=== PATIENT | male | born 1985 | race Caucasian/White ===

== ENCOUNTER 2018-10-18 03:44 | Emergency (ER) | payer OTHER, SELFPAY ==
[2018-10-18 03:54] VITALS: BP 146/90; PULSE 73; RESP 16; TEMP 36.4; O2SAT 98; BMI 26.6
--- NOTE | 2018-10-18 03:58 | ED.ANXIETY ---
HPI - Anxiety General Chief Complaint: Anxiety Stated Complaint: Cant sleep Time Seen by Provider: 10/18/18 03:58 Source: patient Mode of arrival: ambulatory Limitations: no limitations History of Present Illness HPI narrative: Patient is a 22-year-old male who presents with inability to sleep. He states he has not been able to sleep for about a month or more it has progressively gotten worse. The last 2 nights he has only had 3 or 4 hours of sleep. He says he lays down and just can't go to sleep. He feels anxious. He was lying in bed he had some epigastric discomfort he thought it might be his heart. He currently has none. No palpitations. Earlier today he felt a little dizzy and lightheaded and had some tingling in hands that has gone. He denies daily alcohol or marijuana use. In fact he says he has both of those very rarely. He denies any caffeine use as well. He is followed by primary care physician and telling him. History of similar episodes: No Provoking factors: none known Review of Systems Review of Systems ROS Unobtainable: All systems reviewed & are unremarkable except as noted in HPI and below Eyes Eyes: Denies change in vision, Denies eye discharge, Denies irritation and Denies loss of vision ENT Ears, Nose, Mouth, and Throat: Denies change in voice, Denies neck pain and Denies sore throat Cardiovascular Cardiovascular: Reports chest pain, Denies dyspnea and Denies dyspnea on exertion Respiratory Respiratory: Denies cough, Denies dyspnea, Denies dyspnea on exertion and Denies wheezing Gastrointestinal Gastrointestinal: Denies abdominal pain, Denies change in bowel habits, Denies diarrhea, Denies nausea and Denies vomiting Genitourinary Genitourinary: Denies hematuria, Denies flank pain, Denies urinary incontinence and Denies urinary urgency Musculoskeletal Musculoskeletal: Denies neck pain Integumentary/Breasts Skin/Breast: Denies pruritus, Denies erythema, Denies rash and Denies wounds Neurologic Neurologic: Denies loss of vision Psychiatric Psychiatric: Reports anxiety Allergic/Immunologic Allergic/Immunologic: Denies wheezing [facility] Medical History Patient denies significant medical history (Acute) Social History Smoking Status: Never smoker Social History Smoking Status: Never smoker Exam Initial Vital Signs Initial Vital Signs: Vital Signs Temperature 97.6 F 10/18/18 03:54 Pulse Rate 73 10/18/18 03:54 Respiratory Rate 16 10/18/18 03:54 Blood Pressure 146/90 H 10/18/18 03:54 Pulse Oximetry 98 10/18/18 03:54 GENERAL: Well-appearing, well-nourished and in no acute distress. HEENT: Head atraumatic,EOMI, pupils reactive, face symmetric, moist mucous membranes CARDIOVASCULAR: Regular rate and rhythm without murmurs, rubs or gallops. RESPIRATORY: Breath sounds equal bilaterally, no wheezes rales or rhonchi. ABDOMEN: Soft, minimal epigastric pain no guarding no rebound Normoactive bowel sounds all 4 quadrants. EXTREMITIES: Normal range of motion, no clubbing or edema. Neurovascularly intact NEUROLOGICAL: Alert and oriented x4.Normal gait and speech. SKIN: Warm, dry, no laceration, no petechiae, no rashes or lesions. Course Orders Ordered: ED Orders 10/18/18 03:58 EKG-12 Lead Stat Discontinued Medications Lorazepam (Ativan) 0.5 mg PO NOW ONE Stop: 10/18/18 03:59 Last Admin: 10/18/18 04:02 Dose: 0.5 mg Documented by: JOSUÉ Vital Signs Vital signs: Vital Signs - 8 hr 10/18/18 03:54 Temperature 97.6 F Pulse Rate 73 Respiratory Rate 16 Blood Pressure 146/90 H Pulse Oximetry 98 MDM - Anxiety ECG Data Attestation: I personally reviewed and interpreted this ECG as follows: Prior ECG tracings: not available for review Interpretation: Normal sinus rhythm rate 62 p.r. interval 166 QRS [address] changes no T-wave inversions no ischemia and no arrhythmia MDM Narrative Medical decision making narrative: Patient overall here for anxiety and insomnia. We talked about long-term anxiety medications for which he will need to see his PCP for. Symptoms of dizziness and overall not feeling well likely from sleep deprivation. Will give him 1 Ativan in the ED so he can sleep tonight. Discharge Plan Departure Patient Disposition: Home Clinical Impression: Acute anxiety Discharge Date/Time: 10/18/18 04:16 Instructions: Anxiety Disorders Activity Restrictions/Additional Instructions: *You have been diagnosed with anxiety *What to do: Your anxiety is likely causing insomnia. Recommend long lasting anxiety medication and/or therapeutic counseling. Your primary care physician will need to right you for anxiety medications. You were given 1 dose of Ativan this evening. This should help you sleep tonight. Benadryl 25-50 mg before bed if needed for sleeping aid *Continue to take medications as directed *Follow up with your primary care provider in 2-3 days *Return to ER if you should have increasing chest pain shortness of breath numbness tingling weakness or any new, worsening or concerning symptoms
[2018-10-18] MEDS: LORazepam 0.5 MG TABLET PO (04:02)
== END 2018-10-18 04:16 | disposition home or self-care (01) ==
PROVIDERS: Emergency Provider Emergency Medicine
DX: F41.9 Anxiety disorder, unspecified (principal)
CPT/HCPCS: 93005; 99282; 99283

== ENCOUNTER 2018-10-19 11:02 | Emergency (ER) | payer OTHER, SELFPAY ==
[2018-10-19 11:19] VITALS: BP 135/77; PULSE 71; RESP 15; TEMP 36.8; O2SAT 99; BMI 25.9
--- NOTE | 2018-10-19 11:46 | ED.HA ---
HPI - Headache <FELTON Malone - Last Filed: 10/19/18 17:21> General Chief Complaint: Headache Stated Complaint: headaches/loss of depth of perception x2 days Time Seen by Provider: 10/19/18 11:26 Source: patient and family Mode of arrival: ambulatory Limitations: no limitations History of Present Illness HPI Narrative: The patient is a 32-year-old male nonsmoker who was seen yesterday for history of depression and insomnia who presents with visual deficit, yellow vision in both eyes, and trickle from the top with his head to his right ear that happened on . He states he is not sure if he brought this up when he was here yesterday. He states he has been sleeping poorly, was given a single dose of Ativan at yesterday in the emergency department to help him sleep, and has been fairly sleeping since. He states he feels off when he walks around. He states that he thinks the trickle caused a visual deficit as well as his off balance, and this occurred on . He denies any shortness of breath, chest pain, fevers, nausea vomiting or diarrhea. He denies any falls or trauma. He denies any thoughts of hurting himself or anybody else Related Data Previous Rx's Medication Instructions Recorded hydroxyzine pamoate 50 mg PO TID PRN #20 cap 10/19/18 lorazepam 1 mg PO QD-BID PRN #5 tab 10/19/18 Allergies Allergy/AdvReac Type Severity Reaction Status Date / Time No Known Drug Allergies Allergy Verified 10/19/18 11:25 Review of Systems <FELTON Malone - Last Filed: 10/19/18 17:21> Review of Systems Narrative: GENERAL: Denies chills, fatigue, malaise, fever, sweats. HEENT: Denies sinus pain, ear pain, sore throat, difficulty swallowing, dizziness. RESPIRATORY: Denies dyspnea, cough, wheezing, hemoptysis, sputum. CARDIOVASCULAR: Denies chest pain, palpitations, orthopnea, edema, GASTROINTESTINAL: Denies nausea, vomiting, abdominal pain, diarrhea, constipation, melena. : Denies dysuria, frequency, incontinence, hematuria, urinary retention. MUSCULOSKELETAL: denies weakness, joint pain, or bony pain SKIN: Denies rash, skin lesions, or other NEUROLOGIC: See HPI PSYCHIATRIC: See HPI 12 point review of systems is negative except for those stated above PFSH <FELTON Malone - Last Filed: 10/19/18 17:21> Medical History Patient denies significant medical history (Acute) Social History Smoking Status: Never smoker Social History Smoking Status: Never smoker Exam <FELTON Malone - Last Filed: 10/19/18 17:21> Narrative Exam Narrative: GENERAL: This is a well-nourished, well-developed patient, no acute distress HEAD: Atraumatic. Normocephalic. No temporal or scalp tenderness. EYES: Pupils equal round and reactive. Extraocular motions intact. No scleral icterus. No injection or drainage. ENT: Nose without bleeding, purulent drainage or septal hematoma. Throat without erythema, tonsillar hypertrophy or exudate. Uvula midline. Airway patent. NECK: Trachea midline. No JVD or lymphadenopathy. Supple, nontender, no meningeal signs. CARDIOVASCULAR: Regular rate and rhythm without murmurs, gallops, or rubs. RESPIRATORY: Clear to auscultation. Breath sounds equal bilaterally. No wheezes, rales, or rhonchi. No cough. No increased respiratory effort. No accessory muscle use GASTROINTESTINAL: Abdomen soft, non-tender, nondistended. No hepato-splenomegaly, or palpable masses. No guarding. EXTREMITIES: No clubbing, cyanosis, or edema. No joint tenderness, effusion, or edema noted. BACK: Nontender without deformity or crepitance. No flank tenderness. NEURO: AOx3. Strength is equal upper and lower extremities bilaterally. Finger-nose test intact. Kendall heel test intact. Serial sevens intact. Steady gait. SKIN: No rash or erythema on visual skin. No noted jaundice Initial Vital Signs Initial Vital Signs: Vital Signs Temperature 98.3 F 10/19/18 11:19 Pulse Rate 71 10/19/18 11:19 Respiratory Rate 15 10/19/18 11:19 Blood Pressure 135/77 10/19/18 11:19 Pulse Oximetry 99 10/19/18 11:19 <Arik Beltran DO - Last Filed: 10/19/18 17:45> Initial Vital Signs Initial Vital Signs: Vital Signs Temperature 98.3 F 10/19/18 11:19 Pulse Rate 71 10/19/18 11:19 Respiratory Rate 15 10/19/18 11:19 Blood Pressure 135/77 10/19/18 11:19 Pulse Oximetry 99 10/19/18 11:19 Scores <FELTON Malone - Last Filed: 10/19/18 17:21> GCS [place] coma scale eye opening: Spontaneous [place] coma scale verbal response: Orientated [address] coma scale motor response: Obey commands [address] coma scale total score: 15 NIH Stroke Scale Level of Conciousness: Alert, keenly responsive Ask month/age: Answers both questions correctly. Open/close eyes, close hand: Performs both tasks correctly Best gaze horizontal: Normal Visual fleming: No visual loss Facial palsy: Normal symetrical movement Left arm drift: No drift for full 10 sec Right arm drift: No drift for full 10 sec Left leg drift: No drift for full 10 sec Right leg drift: No drift for full 10 sec Limb ataxia: Absent Sensory on face/arms/legs: Normal, no sensory loss Best language: No aphasia, normal Dysarthria: Normal Extinction or inattention: No abnormality Total NIH Stroke scale score: 0 Course <FELTON Malone - Last Filed: 10/19/18 17:21> Orders Ordered: ED Orders 10/19/18 12:00 Complete Blood Count AUTO DIFF Stat Comprehensive Metabolic Panel Stat Magnesium Stat 10/19/18 13:49 Urine Drug Screen, Rapid Stat Discontinued Medications Acetaminophen (Tylenol) 975 mg PO NOW ONE Stop: 10/19/18 13:24 Last Admin: 10/19/18 13:38 Dose: 975 mg Documented by: JACOB Hydroxyzine Pamoate (Vistaril) 50 mg PO NOW ONE Stop: 10/19/18 13:24 Last Admin: 10/19/18 13:45 Dose: 50 mg Documented by: JACOB Sodium Chloride (Normal Saline 0.9%) 1,000 mls @ 1,000 mls/hr IV BOLUS ONE Stop: 10/19/18 12:41 Last Infusion: 10/19/18 13:20 Dose: 0 mls/hr Documented by: Admin: 10/19/18 12:13 Dose: 1,000 mls/hr Documented by: JACOB Sodium Chloride (Normal Saline 0.9%) 1,000 mls @ 1,000 mls/hr IV BOLUS ONE Stop: 10/19/18 14:22 Last Infusion: 10/19/18 15:09 Dose: 0 mls/hr Documented by: Admin: 10/19/18 13:39 Dose: 1,000 mls/hr Documented by: JACOB Ketorolac Tromethamine (Toradol) 30 mg IV NOW ONE Stop: 10/19/18 11:43 Last Admin: 10/19/18 12:13 Dose: 30 mg Documented by: JACOB Vital Signs Vital signs: Vital Signs - 8 hr 10/19/18 11:19 10/19/18 13:14 10/19/18 15:23 Temperature 98.3 F Pulse Rate 71 81 61 Respiratory Rate 15 20 15 Blood Pressure 135/77 Blood Pressure [Right Arm] 135/77 121/66 Pulse Oximetry 99 99 98 <Arik Beltran DO - Last Filed: 10/19/18 17:45> Orders Ordered: ED Orders 10/19/18 12:00 Complete Blood Count AUTO DIFF Stat Comprehensive Metabolic Panel Stat Magnesium Stat 10/19/18 13:49 Urine Drug Screen, Rapid Stat Discontinued Medications Acetaminophen (Tylenol) 975 mg PO NOW ONE Stop: 10/19/18 13:24 Last Admin: 10/19/18 13:38 Dose: 975 mg Documented by: JACBO Hydroxyzine Pamoate (Vistaril) 50 mg PO NOW ONE Stop: 10/19/18 13:24 Last Admin: 10/19/18 13:45 Dose: 50 mg Documented by: JACOB Sodium Chloride (Normal Saline 0.9%) 1,000 mls @ 1,000 mls/hr IV BOLUS ONE Stop: 10/19/18 12:41 Last Infusion: 10/19/18 13:20 Dose: 0 mls/hr Documented by: Admin: 10/19/18 12:13 Dose: 1,000 mls/hr Documented by: JACOB Sodium Chloride (Normal Saline 0.9%) 1,000 mls @ 1,000 mls/hr IV BOLUS ONE Stop: 10/19/18 14:22 Last Infusion: 10/19/18 15:09 Dose: 0 mls/hr Documented by: Admin: 10/19/18 13:39 Dose: 1,000 mls/hr Documented by: JACOB Ketorolac Tromethamine (Toradol) 30 mg IV NOW ONE Stop: 10/19/18 11:43 Last Admin: 10/19/18 12:13 Dose: 30 mg Documented by: JACOB Vital Signs Vital signs: Vital Signs - 8 hr 10/19/18 11:19 10/19/18 13:14 10/19/18 15:23 Temperature 98.3 F Pulse Rate 71 81 61 Respiratory Rate 15 20 15 Blood Pressure 135/77 Blood Pressure [Right Arm] 135/77 121/66 Pulse Oximetry 99 99 98 MDM - Headache <WES Malone-BC - Last Filed: 10/19/18 17:21> Lab Data Result diagrams: 10/19/18 12:00 10/19/18 12:00 Labs: Lab Results 10/19/18 10/19/18 10/19/18 Range/Units 12:00 12:00 13:49 WBC 6.4 (4.5-11.0) X10^3/uL RBC 5.38 (4.5-5.9) X10^6/uL Hgb 16.3 (13.5-17.5) g/dL Hct 47.0 (41-53) % MCV 87.4 (80-100) fL MCH 30.2 (26-34) PG MCHC 34.6 (30-36) % RDW 13.8 (11.6-14.8) % Plt Count 288 (150-400) X10^3/uL Neut % (Auto) 70.2 (50-75) % Lymph % (Auto) 21.3 L (25-40) % [place] % (Auto) 7.7 (3-14) % Eos % (Auto) 0.3 L (2-4) % Baso % (Auto) 0.5 (0-2) % Neut # (Auto) 4500 (3855-4417) /uL Lymph # (Auto) 1400 (5768-5087) /uL [place] # (Auto) 500 (0-900) /uL Eos # (Auto) 0 (0-450) /uL Baso # (Auto) 0 (0-100) /uL Sodium 141 (137-145) mmol/L Potassium 3.8 (3.4-5.1) mmol/L Chloride 100 (98-107) mmol/L Carbon Dioxide 30 (22-32) mmol/L BUN 17 (9-20) mg/dL Creatinine 1.00 (0.66-1.25) mg/dL Estimated GFR > 60.0 (>60) mL/min BUN/Creatinine Ratio 17.0 (6-22) Glucose 79 (70-100) mg/dL Calcium 9.8 (8.4-10.2) mg/dL Magnesium 2.1 (1.6-2.3) mg/dL Total Bilirubin 0.9 (0.2-1.3) mg/dL AST 23 (17-59) IU/L ALT 17 L (21-72) IU/L Alkaline Phosphatase 51 (38-126) U/L Total Protein 7.9 (6.3-8.2) g/dL Albumin 4.7 (3.5-5.0) g/dL Globulin 3.2 (1.7-4.1) g/dL Albumin/Globulin Ratio 1.5 (1.0-2.8) Urine Opiates Screen Negative (Negative) Ur Oxycodone Screen Negative (Negative) Urine Methadone Screen Negative (Negative) Ur Barbiturates Screen Negative (Negative) U Tricyclic Antidepress Negative (Negative) Ur Phencyclidine Scrn Negative (Negative) Ur Amphetamines Screen Negative (Negative) U Methamphetamines Scrn Negative (Negative) Ur MDMA Scrn (Ecstasy) Negative (Negative) U Benzodiazepines Scrn Negative (Negative) Urine Cocaine Screen Negative (Negative) U Marijuana (THC) Screen Negative (Negative) Urine Dip Bedside Urine Glucose Negative Bedside Urine Bilirubin - Negative Bedside Urine Ketone - Negative Urine Specific [place] 1.015 Bedside Urine Occult Blood - Negative Bedside Urine pH 8.0 Bedside Urine Protein - Negative Bedside Urine Urobilinogen - Negative Bedside Urine Nitrite - Negative Bedside Urine Leukocytes - Negative Esterase MDM Narrative Medical decision making narrative: The patient a 32-year-old male who does the chief complaint of yellow vision, a trickle down his head on and still not sleeping after being evaluated here in this emergency department on Sunday. He requested a CT scan of his head, though he is GCS 15, alert oriented has a NIH of 0 and has no acute signs of a head bleed. He has no altered mental status, denies any acute headache at this point, is alert oriented, not vomiting etc we did do lab work which came back grossly normal. He states that his depth perception is off, though it is normal on exam. The patient states he usually is sleeping 2-3 hours per night at this point time. He states he does not remember the last time he had more than 6 hours of sleep. His neurological exam is normal. I did discuss at length that he needs to follow up with primary care provider, discussed several options for treatment of anxiety and insomnia. The patient denies any thoughts of hurting himself or anybody else. I did discuss monitoring for confusion, repeat vomiting and other signs of head bleed. Discussed coming back to the ER for any acute concerns. I did give him a small prescription of Ativan, with strict instructions to not combine it with any sedating agents such as alcohol. Patient have no questions or concerns. They will come back to the emergency department if needed. <Arik Beltran, DO - Last Filed: 10/19/18 17:45> Lab Data Labs: Lab Results 10/19/18 10/19/18 10/19/18 Range/Units 12:00 12:00 13:49 WBC 6.4 (4.5-11.0) X10^3/uL RBC 5.38 (4.5-5.9) X10^6/uL Hgb 16.3 (13.5-17.5) g/dL Hct 47.0 (41-53) % MCV 87.4 (80-100) fL MCH 30.2 (26-34) PG MCHC 34.6 (30-36) % RDW 13.8 (11.6-14.8) % Plt Count 288 (150-400) X10^3/uL Neut % (Auto) 70.2 (50-75) % Lymph % (Auto) 21.3 L (25-40) % [place] % (Auto) 7.7 (3-14) % Eos % (Auto) 0.3 L (2-4) % Baso % (Auto) 0.5 (0-2) % Neut # (Auto) 4500 (6251-5226) /uL Lymph # (Auto) 1400 (1648-8601) /uL [place] # (Auto) 500 (0-900) /uL Eos # (Auto) 0 (0-450) /uL Baso # (Auto) 0 (0-100) /uL Sodium 141 (137-145) mmol/L Potassium 3.8 (3.4-5.1) mmol/L Chloride 100 (98-107) mmol/L Carbon Dioxide 30 (22-32) mmol/L BUN 17 (9-20) mg/dL Creatinine 1.00 (0.66-1.25) mg/dL Estimated GFR > 60.0 (>60) mL/min BUN/Creatinine Ratio 17.0 (6-22) Glucose 79 (70-100) mg/dL Calcium 9.8 (8.4-10.2) mg/dL Magnesium 2.1 (1.6-2.3) mg/dL Total Bilirubin 0.9 (0.2-1.3) mg/dL AST 23 (17-59) IU/L ALT 17 L (21-72) IU/L Alkaline Phosphatase 51 (38-126) U/L Total Protein 7.9 (6.3-8.2) g/dL Albumin 4.7 (3.5-5.0) g/dL Globulin 3.2 (1.7-4.1) g/dL Albumin/Globulin Ratio 1.5 (1.0-2.8) Urine Opiates Screen Negative (Negative) Ur Oxycodone Screen Negative (Negative) Urine Methadone Screen Negative (Negative) Ur Barbiturates Screen Negative (Negative) U Tricyclic Antidepress Negative (Negative) Ur Phencyclidine Scrn Negative (Negative) Ur Amphetamines Screen Negative (Negative) U Methamphetamines Scrn Negative (Negative) Ur MDMA Scrn (Ecstasy) Negative (Negative) U Benzodiazepines Scrn Negative (Negative) Urine Cocaine Screen Negative (Negative) U Marijuana (THC) Screen Negative (Negative) Urine Dip Bedside Urine Glucose Negative Bedside Urine Bilirubin - Negative Bedside Urine Ketone - Negative Urine Specific [place] 1.015 Bedside Urine Occult Blood - Negative Bedside Urine pH 8.0 Bedside Urine Protein - Negative Bedside Urine Urobilinogen - Negative Bedside Urine Nitrite - Negative Bedside Urine Leukocytes - Negative Esterase Discharge Plan Departure Patient Disposition: Home Clinical Impression: Acute anxiety Headache Qualifiers: Headache type: unspecified Headache chronicity pattern: unspecified pattern Intractability: not intractable Qualified Code(s): R51 - Headache Insomnia Qualifiers: Insomnia type: unspecified Qualified Code(s): G47.00 - Insomnia, unspecified Discharge Date/Time: 10/19/18 16:39 Instructions: DI for Anxiety -- Adult, Treating Insomnia: A Look at Some Treatment Options, No More Sleepless Nights: Dealing With Insomnia, DI for Headache, DI for Insomnia, Mindful Meditation May Reduce Symptoms and Complications of Insomnia, Music May Improve Sleep Quality in Adults with Insomnia Activity Restrictions/Additional Instructions: Today you have a normal neurological exam. Your symptoms are not consistent with a head bleed. Please monitor for any confusion, seizures, repeat vomiting etc. I have given you a prescription of Ativan, to help with anxiety. This can be sedating. It is a benzodiazepine. Do not combine with any alcohol. I have also given you a prescription of hydroxyzine, which also can be used for anxiety. The both of these medications can be sedating and help with sleep. As I discussed, please follow up with primary care provider as soon as possible. Please feel free to come back to or see department for any acute concerns such as concern of heart attack or stroke, or thoughts of hurting yourself or anybody else Prescriptions: New lorazepam 1 mg tablet 1 mg PO QD-BID PRN (Reason: anxiety) Qty: 5 RF: 0 hydroxyzine pamoate 50 mg capsule 50 mg PO TID PRN (Reason: anxiety) Qty: 20 RF: 0 <Arik Beltran DO - Last Filed: 10/19/18 17:45> Sign Out Provider Sign Out Attestation: I was available for consultation during this patient's emergency department encounter
[2018-10-19] MEDS: SODIUM CHLORIDE 0.9% 1,000 ML 1000 ML IV ×2 (12:13→13:39)
[2018-10-19] MEDS: KETOROLAC 60 MG/2 ML VIAL 30 MG IV (12:13)
[2018-10-19 12:48] LABS: Add Manual Diff / Slide Review NO; Basophils Absolute Auto 0 /uL (0-100); Basophils Percent Auto 0.5 % (0-2); Eosinophils Absolute Auto 0 /uL (0-450); Eosinophils Percent Auto 0.3 % (2-4); Hemoglobin 16.3 g/dL (13.5-17.5); Lymphocytes Absolute Auto 1400 /uL (1100-4500); Lymphocytes Percent Auto 21.3 % (25-40); Mean Corpuscular HGB Conc 34.6 % (30-36); Mean Corpuscular Hemoglobin 30.2 PG (26-34); Mean Corpuscular Volume 87.4 fL (80-100); Monocytes Absolute Auto 500 /uL (0-900); Monocytes Percent Auto 7.7 % (3-14); Neutrophils Absolute Auto 4500 /uL (1500-7000); Neutrophils Percent Auto 70.2 % (50-75); Platelet Count 288 X10^3/uL (150-400); Red Blood Cell Count 5.38 X10^6/uL (4.5-5.9); Red Cell Distribution Width 13.8 % (11.6-14.8); White Blood Cell Count 6.4 X10^3/uL (4.5-11.0)
[2018-10-19 12:55] LABS: Alanine Aminotransferase 17 IU/L (21-72); Albumin 4.7 g/dL (3.5-5.0); Albumin Globulin Ratio 1.5 (1.0-2.8); Alkaline Phosphatase 51 U/L (38-126); Aspartate Aminotransferase 23 IU/L (17-59); Bilirubin Total 0.9 mg/dL (0.2-1.3); Blood Urea Nitrogen 17 mg/dL (9-20); Calcium 9.8 mg/dL (8.4-10.2); Carbon Dioxide 30 mmol/L (22-32); Chloride 100 mmol/L (98-107); Estimated Glomerular Filt Rate > 60.0 mL/min (>60); Globulin 3.2 g/dL (1.7-4.1); Glucose 79 mg/dL (70-100); HEMOLYSIS < 15 (0-50); Magnesium 2.1 mg/dL (1.6-2.3); Potassium 3.8 mmol/L (3.4-5.1); Sodium 141 mmol/L (137-145); Total Protein 7.9 g/dL (6.3-8.2)
[2018-10-19 13:14] VITALS: BP 135/77; PULSE 81; RESP 20; O2SAT 99
[2018-10-19] MEDS: ACETAMINOPHEN 325 MG TABLET 975 MG PO (13:38)
[2018-10-19] MEDS: hydrOXYzine pamoate 25 MG CAPSULE 50 MG PO (13:45)
[2018-10-19 13:59] LABS: Urine Amphetamines Negative (Negative); Urine Barbiturates Negative (Negative); Urine Benzodiazepines Negative (Negative); Urine Cocaine Negative (Negative); Urine MDMA Negative (Negative); Urine Methadone Negative (Negative); Urine Methamphetamines Negative (Negative); Urine Morphine/Opi cutoff 2000 Negative (Negative); Urine Oxycodone Negative (Negative); Urine Phencyclidine Negative (Negative); Urine Tetrahydrocannabinol Negative (Negative); Urine Tricyclic Antidepressant Negative (Negative)
[2018-10-19 15:23] VITALS: BP 121/66; PULSE 61; RESP 15; O2SAT 98
== END 2018-10-19 16:39 | disposition home or self-care (01) ==
PROVIDERS: Emergency Provider Nurse Practitioner Family
DX: R51 Headache (principal); G47.00 Insomnia, unspecified; F41.9 Anxiety disorder, unspecified
CPT/HCPCS: 36591; 80053; 80305; 81003; 83735; 85025; 96361; 96374; 99283; 99284; J1885

== ENCOUNTER 2018-10-20 12:48 | Emergency (ER) | payer OTHER, SELFPAY ==
[2018-10-20 13:13] VITALS: BP 127/89; PULSE 78; RESP 18; TEMP 36.7; O2SAT 98; BMI 26.6
[2018-10-20 13:17] VITALS: BP 127/89; PULSE 78; RESP 18; TEMP 36.7; O2SAT 98; BMI 26.6
--- NOTE | 2018-10-20 14:28 | ED_ITS ---
HPI - Recheck/Abnormal Lab/Rx General Chief Complaint: Recheck/Abnormal Lab/Rx Stated Complaint: DEPTH PERCEPTION OFF/RETURNING VISIT Time Seen by Provider: 10/20/18 14:01 Source: patient Mode of arrival: ambulatory Limitations: no limitations History of Present Illness HPI narrative: Patient is a 32-year-old male. This is his 3rd visit in 3 days to the emergency department for very similar symptoms. Both prior visits his discharge diagnosis was acute anxiety. He returns today because he states he continues to have problems with his depth perception. He also states that the collars that he sees less bright than normal. Couple days ago he described a tingling sensation to the top of his head down to his right ear that lasted only seconds. Has not had anything since then. He also describes insomnia for the past several days/weeks last months. He states that he did take an Ativan last thing that he was given his last ER visit and it did allow him to sleep for approximately 8 hours. Stated that he woke up today still having the vision symptoms. He stated that when he looked up his symptoms online he was concerned that he has had a stroke. He was also concerned about meningitis, multiple scle rosis, cellular damage due to lack of oxygen, or intracranial bleed. Related Data Previous Rx's Medication Instructions Recorded hydroxyzine pamoate 50 mg PO TID PRN #20 cap 10/19/18 lorazepam 1 mg PO QD-BID PRN #5 tab 10/19/18 Allergies Allergy/AdvReac Type Severity Reaction Status Date / Time No Known Drug Allergies Allergy Verified 10/20/18 13:13 Review of Systems Constitutional Constitutional: Denies fever(s), Denies frequent falls, Denies headache(s), Denies lethargy and Denies weakness Eyes Eyes: Denies loss of vision Comments: See HPI ENT Ears, Nose, Mouth, and Throat: Denies abnormal hearing, Denies vertigo, Denies dizziness, Denies otalgia, Denies headache(s), Denies epistaxis, Denies disequilibrium, Denies sinus pressure, Denies sore throat and Denies throat swelling Cardiovascular Cardiovascular: Denies chest pain, Denies syncope and Denies dyspnea Respiratory Respiratory: Denies dyspnea Gastrointestinal Gastrointestinal: Denies abdominal pain, Denies nausea and Denies vomiting Genitourinary Genitourinary: Denies dysuria Musculoskeletal Musculoskeletal: Denies abnormal gait, Denies myalgias and Denies tingling Integumentary/Breasts Skin/Breast: Denies lesions and Denies rash Neurologic Neurologic: Denies abnormal hearing, Denies abnormal speech, Denies abnormal gait, Denies behavioral changes, Denies confusion, Denies vertigo, Denies dizziness, Denies syncope, Denies frequent falls, Denies headache(s), Denies lack of coordination, Denies focal weakness, Denies loss of vision, Denies memory loss, Reports other visual disturbances, Denies convulsions, Denies sensory deficit, Denies tingling, Denies paresthesias, Denies disequilibrium and Denies weakness Psychiatric Psychiatric: Denies behavioral changes, Denies confusion and Denies memory loss Comments: Insomnia Hematologic/Lymphatic Hematologic/Lymphatic: Denies easy bleeding and Denies easy bruising Allergic/Immunologic Allergic/Immunologic: Denies throat swelling [facility] Medical History Patient denies significant medical history (Acute) Social History Smoking Status: Never smoker Exam Initial Vital Signs Initial Vital Signs: Vital Signs Temperature 98.1 F 10/20/18 13:13 Pulse Rate 78 10/20/18 13:13 Respiratory Rate 18 10/20/18 13:13 Blood Pressure 127/89 10/20/18 13:13 Pulse Oximetry 98 10/20/18 13:13 Const General: cooperative, healthy appearing, comfortable, well developed, well groomed and No acute distress Orientation: alert, awake and oriented x3 HENMT Head: normal to inspection and normocephalic Ears: TM's normal bilaterally Nose: external nose normal Eyes Pupils: PERRL EOM: EOM intact bilaterally Resp Effort & Inspection: normal respiratory effort Auscultation: clear to auscultation bilaterally Cardio Rate: regular rate Rhythm: regular rhythm Pulses: radial pulses present GI Inspection: non-distended Palpation: soft, No firm and No tender Back/Spine/Pelvis Back: No CVA tenderness Skin Lesions: no lesions Rashes: no rashes Neuro General: alert, awake and oriented x3 Cranial Nerves: CN's II-XI intact bilaterally Cognition: normal cognition Speech: speech normal Gait: normal gait Motor: muscle tone normal throughout Sensory Exam: no sensory deficits noted Coordination: [id number] test normal Extrem General: normal to inspection and capillary refill normal Psych Appearance: grossly normal and well kempt Scores GCS Dayana coma scale eye opening: Spontaneous Craig coma scale verbal response: Orientated Craig coma scale motor response: Obey commands Craig coma scale total score: 15 Course Orders Ordered: ED Orders 10/20/18 15:11 CT head/brain wo con Stat Vital Signs Vital signs: Vital Signs - 8 hr 10/20/18 13:13 10/20/18 13:17 10/20/18 16:01 Temperature 98.1 F 98.1 F Pulse Rate 78 78 67 Respiratory Rate 18 18 15 Blood Pressure 127/89 127/89 Blood Pressure [Right Arm] 122/74 Pulse Oximetry 98 98 100 MDM - Recheck/Abnormal Lab/Rx Medical Records Attestation: I reviewed the patient's medical records. Imaging Data CT scan - head: Radiologist's impression: [place] [address] CT Scan Report Signed Patient: Jung Benton#: [id number] : 1985Acct:[id number] Age/Sex: 32 / MDate of Service: 10/20/18 Loc: ED Accession Number: [id number] Procedure: CT head/brain wo con Ordering Provider: Arik Beltran D.O. PROCEDURE: CT HEAD/BRAIN WO CON INDICATIONS: Vision changes, headache, balance issues TECHNIQUE: Noncontrast 4.5 mm thick angled axial sections acquired from the foramen magnum to the vertex, with coronal and sagittal reformats. For radiation dose reduction, the following was used: automated exposure control, adjustment of mA and/or kV according to patient size. COMPARISON: None. FINDINGS: Image quality: Excellent. CSF spaces: Basal cisterns are patent. No extra-axial fluid collections. Ventricles are asymmetric, with the right ventricle larger than the left lateral ventricle. This degree of asymmetry is considered to be within physiologic/developmental limits, however. Brain: No midline shift. No intracranial masses or hemorrhage. Jerome-white matter interface is normal. Skull and face: Calvarium and visualized facial bones are intact, without suspicious lesions. Sinuses: Visualized sinuses and mastoids are clear. IMPRESSION: No acute intracranial process is seen. Dictated by: Ike Garcia M.D. on 10/20/2018 at 14:40 Approved by: Ike Garcia M.D. on 10/20/2018 at 14:44 [facility] Narrative Medical decision making narrative: This is the patient's 3rd visit in 3 days for very similar symptoms. I do have a very high suspicion that his symptoms are related to anxiety and his him some knee a. I do have a low suspicion for meningitis secondary to his lack of fever, lack and neck pain. I have low suspicion for CVA secondary to his completely normal neurologic exam in the emergency department. I have low suspicion for cellular damage due to lack oxygen given his history and physical exam. Given his normal neurologic exam today also a low suspicion for multiple sclerosis however this could potentially require further workup as an outpatient. I did explain all this to the patient and to his and to his parents who are at bedside. I did state that since this is his 3rd visit in 3 days that if obtaining a head CT would ease his anxiety and potentially allow him to sleep then we could do that in the emergency department. We did discuss the risks and benefits this to include time, money, radiation exposure. We discussed the benefits of this to include confirming my suspicions that he did not have a brain mass or a stroke or an intracerebral hemorrhage. After this discussion the patient did opt to have a head CT which ultimately confirmed my suspicions that there was no emergent condition. We did discuss other possibilities to include migraine headaches. Informed the patient that he does need to follow up with his primary doctor specially if his symptoms do not improve and also to discuss further treatment of his insomnia which I do suspect is causing his symptoms as well. Patient and his family both expressed understanding and agreement plan. Discharge Plan Departure Patient Disposition: Home Clinical Impression: Vision disturbance Discharge Date/Time: 10/20/18 16:21 Instructions: DI for Visual Field Disturbances Activity Restrictions/Additional Instructions: I do recommend that you contact your primary provider on Sunday to discuss further workup. If you so choose you can contact the health manager resource here at the hospital at [phone] to help you establish a primary provider here in the local area. Return to the emergency department for any new symptoms Prescriptions: No Action lorazepam 1 mg tablet 1 mg PO QD-BID PRN (Reason: anxiety) Qty: 5 RF: 0 hydroxyzine pamoate 50 mg capsule 50 mg PO TID PRN (Reason: anxiety) Qty: 20 RF: 0
--- NOTE | 2018-10-20 14:49 | PC.NURSE ---
Family praying over patient. Patient is given estiment for CT exam
--- NOTE | 2018-10-20 15:11 | DI.CT.S_ITS ---
PROCEDURE: CT HEAD/BRAIN WO CON INDICATIONS: Vision changes, headache, balance issues TECHNIQUE: Noncontrast 4.5 mm thick angled axial sections acquired from the foramen magnum to the vertex, with coronal and sagittal reformats. For radiation dose reduction, the following was used: automated exposure control, adjustment of mA and/or kV according to patient size. COMPARISON: None. FINDINGS: Image quality: Excellent. CSF spaces: Basal cisterns are patent. No extra-axial fluid collections. Ventricles are asymmetric, with the right ventricle larger than the left lateral ventricle. This degree of asymmetry is considered to be within physiologic/developmental limits, however. Brain: No midline shift. No intracranial masses or hemorrhage. Jerome-white matter interface is normal. Skull and face: Calvarium and visualized facial bones are intact, without suspicious lesions. Sinuses: Visualized sinuses and mastoids are clear. IMPRESSION: No acute intracranial process is seen. Dictated by: Ike Garcia M.D. on 10/20/2018 at 14:40 Approved by: Ike Garcia M.D. on 10/20/2018 at 14:44
[2018-10-20 16:01] VITALS: BP 122/74; PULSE 67; RESP 15; O2SAT 100
== END 2018-10-20 16:21 | disposition home or self-care (01) ==
PROVIDERS: Emergency Provider Emergency Medicine
DX: H53.9 Unspecified visual disturbance (principal)
CPT/HCPCS: 70450; 99282; 99284